=== PATIENT | male | born 1995 | race Caucasian/White ===

== ENCOUNTER 2017-12-24 09:23 | Emergency (ER) | payer BC | END 2017-12-24 10:43 | disposition home or self-care (01) | LOC: M ED 09:23 | DX: Z04.8 Encounter for examination and observation for other specified reasons (principal) | CPT/HCPCS: 99282 ==

== ENCOUNTER → 2017-12-29 | Outpatient (CLI) | payer BC | LOC: M OUTALCOH 08:17 | DX: F10.10 Alcohol abuse, uncomplicated (principal) ==

== ENCOUNTER 2018-02-10 09:55 | Outpatient (RCR) | payer BC | END 2018-03-06 | LOC: M OUTALCOH 09:55 | DX: F10.10 Alcohol abuse, uncomplicated (principal) ==

== ENCOUNTER 2018-03-08 10:30 | Outpatient (RCR) | payer BC | END 2018-04-06 | LOC: M OUTALCOH 03-10 10:00 | DX: F10.10 Alcohol abuse, uncomplicated (principal) ==

== ENCOUNTER 2018-04-12 11:23 | Outpatient (RCR) | payer BC | END 2018-05-06 | LOC: M OUTALCOH 04-22 09:57 | DX: F10.10 Alcohol abuse, uncomplicated (principal) ==